=== PATIENT | male | born 1995 | race Caucasian/White ===

== ENCOUNTER 2017-11-24 20:08 | Inpatient (IN) | payer MEDICAID, OTHER ==
[~2017-11-24] VITALS: Ht 177.8 cm; Wt 76.7 kg
[~2017-11-24 20:08] MED LIST: OLAN5TAB40 PO
[2017-11-24] MEDS ORDERED: RISP3 PO (21:51)
[2017-11-24 22:17] LABS: ANION GAP 10 mmol/L (8-16); CALCIUM, TOTAL 8.7 mg/dL (8.8-10.5); CARBON DIOXIDE 27 mmol/L (22-29); CHLORIDE 103 mmol/L (98-107); CREATININE 0.88 mg/dL (0.60-1.30); GLOMERULAR FILTR. RATE CALC > 60 mL/min (>60); GLUCOSE,RANDOM 126 mg/dL (70-110); POTASSIUM 3.6 mmol/L (3.5-5.1); SODIUM SERUM 140 mmol/L (136-145); UREA NITROGEN, BLOOD 13 mg/dL (7-18)
[2017-11-24 22:22] LABS: ALANINE AMINOTRANSFERASE 22 U/L (12-78); ALKALINE PHOSPHATASE 80 U/L (46-116); ASPARTATE AMINOTRANSFERASE 13 U/L (15-37); BILIRUBIN,TOTAL 0.3 mg/dL (0.1-1.0); TOTAL PROTEIN, SERUM 6.8 g/dL (6.4-8.2)
[2017-11-24] MEDS ORDERED: HALOPERIDOL 5 MG TABLET PO PRN (22:30)
[2017-11-24] MEDS ORDERED: LORazepam 2 MG TABLET PO PRN (22:30)
[2017-11-24 23:00] LABS: AMPHET/METH SCREEN,URINE NEGATIVE (NEGATIVE); BARBITURATE SCREEN, URINE NEGATIVE (NEGATIVE); CANNABINOID SCREEN,URINE NEGATIVE (NEGATIVE); COCAINE SCREEN,URINE NEGATIVE (NEGATIVE); METHADONE SCREEN, URINE NEGATIVE (NEGATIVE); OPIATE SCREEN,URINE NEGATIVE (NEGATIVE)
[2017-11-24 23:02] LABS: PHENCYCLIDINE SCREEN,URINE NEGATIVE (NEGATIVE)
[2017-11-24 23:08] LABS: BENZODIAZEPINES SCREEN,URINE NEGATIVE (NEGATIVE)
[2017-11-25 08:04] LABS: BASOPHILS % (AUTO) 0.2 % (0.0-2.0); EOSINOPHILS % (AUTO) 0.1 % (1.0-6.0); HEMATOCRIT 43.6 % (41-53); HEMOGLOBIN 14.7 g/dL (13.5-17.5); LYMPHOCYTES # (AUTO) 0.8 K/uL (1.0-4.8); LYMPHOCYTES % (AUTO) 8.2 % (22.0-44.0); MEAN CORPUSCULAR HEMOGLOBIN 31.1 pg (26.0-34.0); MEAN CORPUSCULAR HGB CONC 33.8 G/dL (31.0-37.0); MEAN CORPUSCULAR VOLUME 92 fL (80-100); MONOCYTES # (AUTO) 0.5 K/uL (0.1-1.0); MONOCYTES % (AUTO) 5.2 % (2.0-9.0); NEUTROPHILS # (AUTO) 8.8 K/uL (1.8-7.7); PLATELET COUNT (AUTO) 287 K/uL (150-450); RED BLOOD CELL COUNT(AUTO) 4.73 MIL/uL (4.50-5.90); RED CELL DISTRIBUTION WIDTH 13.9 % (11.5-14.5)
[2017-11-25 08:05] LABS: NEUTROPHILS % (AUTO) 86.3 % (40.0-70.0)
[2017-11-25 08:15] LABS: CHOL/HDL RATIO 2.4 (4.2-7.3); CHOLESTEROL 179 mg/dL (131-200); HDL CHOLESTEROL 75 mg/dL (40-60); LDL CHOL (CALC.) 94 mg/dL (0-130); TRIGLYCERIDES 48 mg/dL (15-150)
[2017-11-25 10:01] VITALS: BP 130/87
[2017-11-25 19:20] VITALS: BP 120/70
[2017-11-26 06:15] VITALS: BP 134/78
[2017-11-26 08:18] LABS: HEMOGLOBIN A1C 5.5 % (4.5-6.2)
[2017-11-26 08:19] VITALS: BP 117/64
[2017-11-26 08:37] LABS: CHOL/HDL RATIO 2.3 (4.2-7.3); FREE T4 (FREE THYROXINE) 0.75 ng/dL (0.76-1.46); THYROID STIMULATING HORMONE 2.08 uIU/mL (0.36-3.74)
[2017-11-26] MEDS: OLANZapine 5 MG RAPDIS TABLET PO SCH (16:37)
[2017-11-26 19:50] VITALS: BP 100/64
[2017-11-27 06:57] VITALS: BP 101/63
[2017-11-27 09:10] VITALS: BP 120/69
[2017-11-27] MEDS: OLANZapine 5 MG RAPDIS TABLET PO SCH ×2 (10:29→17:06)
[2017-11-27 16:25] VITALS: BP 110/69
[2017-11-28 06:41] VITALS: BP 115/70
[2017-11-28 08:57] VITALS: BP 108/77
[2017-11-28] MEDS: OLANZapine 5 MG RAPDIS TABLET PO SCH ×2 (09:02→16:47)
[2017-11-28 16:00] VITALS: BP 107/62
[2017-11-29 01:01] VITALS: BP 114/62
[2017-11-29 08:51] VITALS: BP 106/60
[2017-11-29] MEDS: OLANZapine 5 MG RAPDIS TABLET PO SCH ×2 (08:54→16:19)
[2017-11-29 16:00] VITALS: BP 113/66
[2017-11-30 06:48] VITALS: BP 114/70
[2017-11-30 09:06] VITALS: BP 118/62
[2017-11-30] MEDS: OLANZapine 5 MG RAPDIS TABLET PO SCH ×2 (09:21→17:31)
[2017-11-30 16:29] VITALS: BP 120/69
[2017-11-30] MEDS: ZOLPIDEM TARTRATE 10 MG TABLET PO PRN (22:04)
[2017-12-01 06:53] VITALS: BP 110/68
[2017-12-01] MEDS: OLANZapine 5 MG RAPDIS TABLET PO SCH ×2 (09:06→16:19)
[2017-12-01 09:27] VITALS: BP 107/63
[2017-12-01 16:18] VITALS: BP 115/65
[2017-12-02 01:24] VITALS: BP 112/61
[2017-12-02] MEDS: OLANZapine 5 MG RAPDIS TABLET PO SCH ×2 (08:22→16:27)
[2017-12-02 08:28] VITALS: BP 116/66
[2017-12-02 17:12] VITALS: BP 105/61
[2017-12-02] MEDS: ZOLPIDEM TARTRATE 10 MG TABLET PO PRN (20:31)
[2017-12-03 06:43] VITALS: BP 110/60
[2017-12-03 08:36] VITALS: BP 122/67
[2017-12-03] MEDS: OLANZapine 5 MG RAPDIS TABLET PO SCH ×2 (09:15→16:26)
[2017-12-03 16:00] VITALS: BP 111/63
[2017-12-04 06:02] VITALS: BP 121/62
[2017-12-04] MEDS: OLANZapine 5 MG RAPDIS TABLET PO SCH ×2 (09:00→17:00)
[2017-12-04 10:02] VITALS: BP 112/63
[2017-12-04 16:13] VITALS: BP 118/71
[2017-12-04] MEDS ORDERED: OLAN5TAB40 PO (16:41)
== END 2017-12-04 18:34 | disposition home or self-care (01) | DRG 750 ==
LOC: EMS 20:10 → AHU 11-25 07:36 → B2S 11-25 18:53
PROVIDERS: ADMIT Psychiatry & Neurology Psychiatry; ATTEND Psychiatry & Neurology Child & Adolescent Psychiatry
DX: F20.0 Paranoid schizophrenia (principal); R45.851 Suicidal ideations; Z59.0 Homelessness; E03.9 Hypothyroidism, unspecified; F12.90 Cannabis use, unspecified, uncomplicated; J30.9 Allergic rhinitis, unspecified; Z88.5 Allergy status to narcotic agent; Z79.899 Other long term (current) drug therapy
CPT/HCPCS: 83036; 84439; 84443; 87081; 99285; G0480

== ENCOUNTER 2018-05-30 12:00 | Emergency (ER) | payer MEDICAID, OTHER ==
[~2018-05-30] VITALS: Ht 177.8 cm; Wt 70.5 kg
[2018-05-30] MEDS ORDERED: SODIUM CHLORIDE 0.9% 1,000 ML IV ONE ×2 (12:45→14:30)
[2018-05-30 12:53] LABS: BASOPHILS % (AUTO) 0.6 % (0.0-2.0); EOSINOPHILS % (AUTO) 2.1 % (1.0-6.0); HEMATOCRIT 41.8 % (41-53); HEMOGLOBIN 14.4 g/dL (13.5-17.5); LYMPHOCYTES # (AUTO) 1.9 K/uL (1.0-4.8); LYMPHOCYTES % (AUTO) 31.9 % (22.0-44.0); MEAN CORPUSCULAR HEMOGLOBIN 30.4 pg (26.0-34.0); MEAN CORPUSCULAR HGB CONC 34.4 G/dL (31.0-37.0); MEAN CORPUSCULAR VOLUME 88 fL (80-100); MONOCYTES # (AUTO) 0.6 K/uL (0.1-1.0); MONOCYTES % (AUTO) 10.2 % (2.0-9.0); NEUTROPHILS # (AUTO) 3.4 K/uL (1.8-7.7); NEUTROPHILS % (AUTO) 55.2 % (40.0-70.0); PLATELET COUNT (AUTO) 284 K/uL (150-450); RED BLOOD CELL COUNT(AUTO) 4.74 MIL/uL (4.50-5.90); RED CELL DISTRIBUTION WIDTH 13.7 % (11.5-14.5)
[2018-05-30 13:02] LABS: ANION GAP 8 mmol/L (8-16); CALCIUM, TOTAL 8.6 mg/dL (8.8-10.5); CARBON DIOXIDE 29 mmol/L (22-29); CHLORIDE 105 mmol/L (98-107); CREATININE 0.95 mg/dL (0.60-1.30); GLOMERULAR FILTR. RATE CALC > 60 mL/min (>60); GLUCOSE,RANDOM 99 mg/dL (70-110); POTASSIUM 4.1 mmol/L (3.5-5.1); SODIUM SERUM 142 mmol/L (136-145); UREA NITROGEN, BLOOD 12 mg/dL (7-18)
[2018-05-30 13:04] LABS: ALANINE AMINOTRANSFERASE 17 U/L (12-78); ALBUMIN 3.8 g/dL (3.4-5.0); ALKALINE PHOSPHATASE 57 U/L (46-116); ASPARTATE AMINOTRANSFERASE 14 U/L (15-37); BILIRUBIN,TOTAL 0.9 mg/dL (0.1-1.0); LIPASE 127 U/L (73-393); TOTAL PROTEIN, SERUM 6.3 g/dL (6.4-8.2)
[2018-05-30] MEDS ORDERED: IOVERSOL 320 MG/ML 100 ML VIAL ONE (15:37)
[2018-05-30 15:58] LABS: AMPHET/METH SCREEN,URINE NEGATIVE (NEGATIVE); BARBITURATE SCREEN, URINE NEGATIVE (NEGATIVE); BENZODIAZEPINES SCREEN,URINE NEGATIVE (NEGATIVE); CANNABINOID SCREEN,URINE NEGATIVE (NEGATIVE); COCAINE SCREEN,URINE NEGATIVE (NEGATIVE); METHADONE SCREEN, URINE NEGATIVE (NEGATIVE); OPIATE SCREEN,URINE NEGATIVE (NEGATIVE)
[2018-05-30 16:01] LABS: PHENCYCLIDINE SCREEN,URINE NEGATIVE (NEGATIVE)
[2018-05-30 16:22] LABS: APPEARANCE,URINE CLEAR (CLEAR); BILIRUBIN,URINE NEGATIVE (NEGATIVE); GLUCOSE, URINE (UA) NEGATIVE (NEGATIVE); KETONES,URINE NEGATIVE (NEGATIVE); LEUKOCYTE ESTERASE ,URINE NEGATIVE (NEGATIVE); NITRATE,URINE NEGATIVE (NEGATIVE); OCCULT BLOOD,URINE NEGATIVE (NEGATIVE); PROTEIN,URINE NEGATIVE (NEGATIVE)
[2018-05-30 16:26] LABS: RBC,URINE 0-2 /HPF (0-2); WBC,URINE 0-2 /HPF (0-5)
[2018-05-30 16:27] LABS: BACTERIA,URINE Rare /HPF (None Seen); MUCUS,URINE Moderate LPF (None Seen); SQUAMOUS EPITHELIAL CELL,UR None Seen /LPF (None Seen)
[2018-05-30 17:56] VITALS: BP 117/75
== END 2018-05-30 17:57 | disposition home or self-care (01) ==
LOC: EMS 12:01
DX: K42.9 Umbilical hernia without obstruction or gangrene (principal); R10.12 Left upper quadrant pain; Z88.6 Allergy status to analgesic agent; Z88.5 Allergy status to narcotic agent
CPT/HCPCS: 36415; 74177; 80053; 80307; 81001; 83690; 85025; 99285; G0480; J7030; Q9967

== ENCOUNTER 2018-12-14 00:51 | Emergency (ER) | payer OTHER ==
[~2018-12-14] VITALS: Ht 177.8 cm; Wt 88.6 kg
[2018-12-14] MEDS ORDERED: TRAM50TA4 PO (01:05)
[2018-12-14 01:27] LABS: BASOPHILS % (AUTO) 0.4 % (0.0-2.0); EOSINOPHILS % (AUTO) 0.8 % (1.0-6.0); HEMATOCRIT 42.4 % (41-53); HEMOGLOBIN 14.2 g/dL (13.5-17.5); LYMPHOCYTES # (AUTO) 1.3 K/uL (1.0-4.8); LYMPHOCYTES % (AUTO) 11.5 % (22.0-44.0); MEAN CORPUSCULAR HEMOGLOBIN 30.1 pg (26.0-34.0); MEAN CORPUSCULAR HGB CONC 33.5 G/dL (31.0-37.0); MEAN CORPUSCULAR VOLUME 90 fL (80-100); MONOCYTES # (AUTO) 0.9 K/uL (0.1-1.0); MONOCYTES % (AUTO) 7.4 % (2.0-9.0); NEUTROPHILS # (AUTO) 9.3 K/uL (1.8-7.7); NEUTROPHILS % (AUTO) 79.9 % (40.0-70.0); PLATELET COUNT (AUTO) 317 K/uL (150-450); RED BLOOD CELL COUNT(AUTO) 4.72 MIL/uL (4.50-5.90); RED CELL DISTRIBUTION WIDTH 14.5 % (11.5-14.5)
[2018-12-14 01:33] LABS: ANION GAP 10 mmol/L (8-16); CALCIUM, TOTAL 8.6 mg/dL (8.8-10.5); CARBON DIOXIDE 28 mmol/L (22-29); CHLORIDE 106 mmol/L (98-107); CREATININE 0.85 mg/dL (0.60-1.30); GLOMERULAR FILTR. RATE CALC > 60 mL/min (>60); GLUCOSE,RANDOM 108 mg/dL (70-110); POTASSIUM 3.5 mmol/L (3.5-5.1); SODIUM SERUM 144 mmol/L (136-145); UREA NITROGEN, BLOOD 12 mg/dL (7-18)
[2018-12-14 01:37] LABS: ALANINE AMINOTRANSFERASE 28 U/L (12-78); ALBUMIN 3.4 g/dL (3.4-5.0); ALKALINE PHOSPHATASE 68 U/L (46-116); ASPARTATE AMINOTRANSFERASE 22 U/L (15-37); BILIRUBIN,TOTAL 0.3 mg/dL (0.1-1.0); TOTAL PROTEIN, SERUM 6.2 g/dL (6.4-8.2)
[2018-12-14 03:36] LABS: AMPHET/METH SCREEN,URINE NEGATIVE (NEGATIVE); BARBITURATE SCREEN, URINE NEGATIVE (NEGATIVE); BENZODIAZEPINES SCREEN,URINE NEGATIVE (NEGATIVE); CANNABINOID SCREEN,URINE NEGATIVE (NEGATIVE); COCAINE SCREEN,URINE NEGATIVE (NEGATIVE); METHADONE SCREEN, URINE NEGATIVE (NEGATIVE); OPIATE SCREEN,URINE NEGATIVE (NEGATIVE)
[2018-12-14 03:37] LABS: PHENCYCLIDINE SCREEN,URINE NEGATIVE (NEGATIVE)
[2018-12-14 05:28] VITALS: BP 128/78
== END 2018-12-14 05:57 | disposition home or self-care (01) ==
LOC: EMS 00:52
DX: F20.9 Schizophrenia, unspecified (principal); F31.9 Bipolar disorder, unspecified; Z88.6 Allergy status to analgesic agent; Z79.899 Other long term (current) drug therapy
CPT/HCPCS: 36415; 80053; 80307; 85025; 99284; G0480

== ENCOUNTER 2018-12-15 03:07 | Emergency (ER) | payer OTHER ==
[~2018-12-15] VITALS: Ht 177.8 cm; Wt 87.3 kg
[~2018-12-15 03:07] MED LIST changes: -OLAN5TAB40 PO; +TRAM50TA4 PO
[2018-12-15] MEDS ORDERED: VIT E ACET/GLY/DIMETH/WATER 236 ML LOTION TP ONE (05:15)
[2018-12-15 06:22] VITALS: BP 129/83
== END 2018-12-15 07:10 | disposition home or self-care (01) ==
LOC: EMS 03:08
DX: F29 Unspecified psychosis not due to a substance or known physiological condition (principal); F31.9 Bipolar disorder, unspecified; F20.9 Schizophrenia, unspecified; Z59.0 Homelessness; Z88.5 Allergy status to narcotic agent; Z88.6 Allergy status to analgesic agent

== ENCOUNTER 2019-09-07 19:40 | Emergency (ER) | payer MEDICAID, OTHER | END 2019-09-07 20:30 | disposition left against medical advice (07) | LOC: EMS 19:42 | DX: Z00.00 Encounter for general adult medical examination without abnormal findings (principal); Z53.21 Procedure and treatment not carried out due to patient leaving prior to being seen by health care provider ==

== ENCOUNTER 2019-12-05 12:08 | Emergency (ER) | payer MEDICAID ==
[~2019-12-05] VITALS: Ht 172.7 cm; Wt 72.7 kg
[2019-12-05 12:21] VITALS: BP 120/73
== END 2019-12-05 15:43 | disposition left against medical advice (07) ==
LOC: EMS 12:10
DX: F20.9 Schizophrenia, unspecified (principal); R50.9 Fever, unspecified; F31.9 Bipolar disorder, unspecified; Z88.5 Allergy status to narcotic agent; Z88.6 Allergy status to analgesic agent

== ENCOUNTER 2019-12-05 16:03 | Emergency (ER) | payer MEDICAID ==
[~2019-12-05] VITALS: Ht 175.3 cm; Wt 77.3 kg
[2019-12-05 17:40] VITALS: BP 117/73
== END 2019-12-05 17:59 | disposition home or self-care (01) ==
LOC: EMS 16:06
DX: F20.9 Schizophrenia, unspecified (principal); F31.9 Bipolar disorder, unspecified; Z88.5 Allergy status to narcotic agent; Z88.8 Allergy status to other drugs, medicaments and biological substances

== ENCOUNTER 2020-06-08 08:25 | Emergency (ER) | payer MEDICAID ==
[~2020-06-08] VITALS: Ht 170.2 cm; Wt 72.7 kg
[2020-06-08 09:57] VITALS: BP 98/59
== END 2020-06-08 09:58 | disposition home or self-care (01) ==
LOC: EMS 08:30
DX: Z03.818 Encounter for observation for suspected exposure to other biological agents ruled out (principal); R42 Dizziness and giddiness; R10.9 Unspecified abdominal pain; F31.9 Bipolar disorder, unspecified; F20.9 Schizophrenia, unspecified; Z88.6 Allergy status to analgesic agent; Z88.5 Allergy status to narcotic agent
CPT/HCPCS: 99283; U0003

== ENCOUNTER 2020-06-19 07:45 | Emergency (ER) | payer MEDICAID ==
[~2020-06-19] VITALS: Ht 172.7 cm; Wt 68.2 kg
[2020-06-19 07:48] VITALS: BP 117/92
== END 2020-06-19 08:55 | disposition home or self-care (01) ==
LOC: EMS 07:54
DX: R50.9 Fever, unspecified (principal); F31.9 Bipolar disorder, unspecified; F20.9 Schizophrenia, unspecified; Z88.6 Allergy status to analgesic agent; Z88.8 Allergy status to other drugs, medicaments and biological substances
CPT/HCPCS: Z7502

== ENCOUNTER 2024-08-01 06:51 | Emergency (ER) | payer MEDICAID ==
[~2024-08-01] VITALS: Ht 175.3 cm; Wt 84.1 kg
[2024-08-01 07:07] VITALS: BP 102/84; PULSE 95; RESP 18; TEMP 98.5; O2SAT 99
[2024-08-01] MEDS: IBUPROFEN 600 MG TABLET PO ONE (07:32)
== END 2024-08-01 07:47 | disposition home or self-care (01) ==
LOC: EMS 06:51
DX: R06.02 Shortness of breath (principal); F19.20 Other psychoactive substance dependence, uncomplicated; F20.9 Schizophrenia, unspecified; F17.200 Nicotine dependence, unspecified, uncomplicated; F12.90 Cannabis use, unspecified, uncomplicated; Z88.5 Allergy status to narcotic agent
CPT/HCPCS: 99282; Z7502; Z7610

== ENCOUNTER 2024-08-06 08:31 | Emergency (ER) | payer MEDICAID ==
[~2024-08-06] VITALS: Ht 170.2 cm; Wt 68.2 kg
[2024-08-06 08:41] VITALS: TEMP 98
[2024-08-06 08:44] LABS: COVID AG,FIA SOURCE NASAL SWAB
[2024-08-06 09:06] LABS: INFLUENZA TYPE A NEGATIVE FOR TYPE A (NEGATIVE); INFLUENZA TYPE B NEGATIVE FOR TYPE B (NEGATIVE); SARS-COV2 (COVID) ANTIGEN,FIA Negative (Negative)
[2024-08-06] MEDS ORDERED: BENZ-227 PO (09:38)
[2024-08-06 10:06] VITALS: BP 104/68; PULSE 82; RESP 18; O2SAT 98
== END 2024-08-06 10:14 | disposition home or self-care (01) ==
LOC: EMS 08:31
DX: B34.9 Viral infection, unspecified (principal); F31.9 Bipolar disorder, unspecified; F20.9 Schizophrenia, unspecified; F17.210 Nicotine dependence, cigarettes, uncomplicated; F12.90 Cannabis use, unspecified, uncomplicated; Z88.5 Allergy status to narcotic agent; Z20.822 Contact with and (suspected) exposure to COVID-19
CPT/HCPCS: 87804; 99283

== ENCOUNTER → 2024-08-24 | Emergency (ER) | payer MEDICAID ==
[~2024-08-24] VITALS: Ht 177.8 cm; Wt 90.1 kg
[~2024-08-24] MED LIST changes: +BENZ-227 PO; -TRAM50TA4 PO
[2024-08-24 14:20] VITALS: BP 117/69; PULSE 101; RESP 18; TEMP 97.9; O2SAT 97
[2024-08-24] MEDS: ONDANSETRON 4 MG RAPDIS TABLET PO ONE (15:21)
== END | disposition home or self-care (01) ==
LOC: EMS 14:18
DX: R10.84 Generalized abdominal pain (principal); R11.2 Nausea with vomiting, unspecified; F12.90 Cannabis use, unspecified, uncomplicated; F17.210 Nicotine dependence, cigarettes, uncomplicated; F20.9 Schizophrenia, unspecified; Z88.5 Allergy status to narcotic agent
CPT/HCPCS: 99283; 99406

== ENCOUNTER 2024-09-04 22:17 | Emergency (ER) | payer MEDICAID ==
[~2024-09-04] VITALS: Ht 177.8 cm; Wt 89.5 kg
[2024-09-04 22:23] VITALS: BP 127/58; PULSE 96; RESP 18; TEMP 97.7; O2SAT 99
[2024-09-04 23:10] LABS: BASOPHILS % (AUTO) 0.5 % (0.0-2.0); EOSINOPHILS % (AUTO) 2.7 % (1.0-6.0); HEMATOCRIT 41.6 % (41-53); HEMOGLOBIN 13.8 g/dL (13.5-17.5); LYMPHOCYTES # (AUTO) 2.9 K/uL (1.0-4.8); LYMPHOCYTES % (AUTO) 33.6 % (22.0-44.0); MEAN CORPUSCULAR HEMOGLOBIN 30.5 pg (26.0-34.0); MEAN CORPUSCULAR HGB CONC 33.2 G/dL (31.0-37.0); MEAN CORPUSCULAR VOLUME 92 fL (80-100); MONOCYTES # (AUTO) 0.7 K/uL (0.1-1.0); MONOCYTES % (AUTO) 8.1 % (2.0-9.0); NEUTROPHILS # (AUTO) 4.8 K/uL (1.8-7.7); NEUTROPHILS % (AUTO) 55.1 % (40.0-70.0); PLATELET COUNT (AUTO) 335 K/uL (150-450); RED BLOOD CELL COUNT(AUTO) 4.54 MIL/uL (4.50-5.90); RED CELL DISTRIBUTION WIDTH 14.7 % (11.5-14.5); WHITE BLOOD COUNT (AUTO) 8.6 K/uL (4.5-11.0)
[2024-09-04 23:16] LABS: ANION GAP 6 mmol/L (8-16); CALCIUM, TOTAL 8.4 mg/dL (8.8-10.5); CARBON DIOXIDE 29 mmol/L (22-29); CHLORIDE 107 mmol/L (98-107); CREATININE 0.85 mg/dL (0.60-1.30); GLOMERULAR FILTR. RATE CALC > 60 mL/min (>60); GLUCOSE,RANDOM 111 mg/dL (70-110); POTASSIUM 3.6 mmol/L (3.5-5.1); SODIUM SERUM 142 mmol/L (136-145); UREA NITROGEN, BLOOD 16 mg/dL (7-18)
[2024-09-04 23:22] LABS: ALANINE AMINOTRANSFERASE 16 U/L (12-78); ALBUMIN 3.6 g/dL (3.4-5.0); ALKALINE PHOSPHATASE 92 U/L (46-116); ASPARTATE AMINOTRANSFERASE 13 U/L (15-37); BILIRUBIN,TOTAL 0.4 mg/dL (0.1-1.0); LIPASE 56 U/L (16-77); TOTAL PROTEIN, SERUM 6.2 g/dL (6.4-8.2)
[2024-09-04 23:32] LABS: COVID AG,FIA SOURCE NASAL SWAB
[2024-09-04] MEDS: IBUPROFEN 600 MG TABLET PO ONE (23:45)
[2024-09-04] MEDS: ONDANSETRON 4 MG TABLET PO ONE (23:45)
[2024-09-04 23:56] LABS: RAPID GROUP A STREP NEGATIVE (NEGATIVE)
[2024-09-05 00:05] LABS: INFLUENZA TYPE A NEGATIVE FOR TYPE A (NEGATIVE); INFLUENZA TYPE B NEGATIVE FOR TYPE B (NEGATIVE)
[2024-09-05 00:06] LABS: SARS-COV2 (COVID) ANTIGEN,FIA Negative (Negative)
[2024-09-05] MEDS ORDERED: IBUP-1492 PO (00:19)
[2024-09-05] MEDS ORDERED: ONDA-104 PO (00:19)
== END 2024-09-05 00:56 | disposition home or self-care (01) ==
LOC: EMS 22:17
DX: J02.9 Acute pharyngitis, unspecified (principal); R11.2 Nausea with vomiting, unspecified; F20.9 Schizophrenia, unspecified; F31.9 Bipolar disorder, unspecified; F12.90 Cannabis use, unspecified, uncomplicated; F17.210 Nicotine dependence, cigarettes, uncomplicated; Z88.5 Allergy status to narcotic agent; Z20.822 Contact with and (suspected) exposure to COVID-19
CPT/HCPCS: 99283; 87426; 80048; 80076; 83690; 85025; 87430; 87804; 36415; Q0162